=== PATIENT | male | born 2000 | race Caucasian/White ===

== ENCOUNTER 2024-08-13 11:52 | Emergency (ER) | payer BC, OTHER ==
[~2024-08-13] VITALS: Ht 175.3 cm; Wt 95.6 kg
[2024-08-13 13:21] LABS: Urine Bacteria None Seen /hpf (None Seen)
[2024-08-13 13:37] LABS: Urine Blood Negative /uL (Negative); Urine Clarity Clear (Clear); Urine Color Light-Yellow (Yellow); Urine Mucus FEW (None Seen); Urine Protein, UAD Negative (Negative); Urine Specific Gravity 1.021 (1.001-1.035); Urine Urobilinogen Normal (Negative); Urine WBC <1 /hpf (0 - 3); Urine pH 5.5 (5.0-9.0)
[2024-08-13] MEDS: TAMSULOSIN HYDROCHLORIDE 0.4 MG CAP PO ONE (13:50)
[2024-08-13] MEDS: METOCLOPRAMIDE HCL 5MG/ml INJ 2ml VIAL IV ONE (13:51)
[2024-08-13] MEDS: KETOROLAC TROMETH 30 MG/ML 1ML VIAL IV ONE (13:51)
--- NOTE | 2024-08-13 14:35 | ED.PDOC ---
History of Present Illness HPI Comments 23 y/o M, with a Hx of right testicular scrotum stone and marijuana use, presents with c/o right-sided flank and abdominal pain and nausea, today. Patient reports sudden and unprovoked onset of symptoms, this morning, while at work, with no prior Hx of in the past. He states on plan radiating from his flank to his abdomen. He admits to no recent injuries, sick contact, travel, spoiled food intake, stressors, strenuous activities, or substance use/exposure along with any additional relevant or pertinent Hx. Patient denies having any vomiting, diarrhea, urinary symptoms, fever, chills, or other associated symptoms or modifiers at this time. Chief Complaint: Flank Pain Time Seen by MD: 13:40 Primary Care Provider: DARIANA Yancey Notes: Nurses Notes, Medications, Allergies Allergies: Coded Allergies: NO KNOWN ALLERGIES (Unverified , 08/13/24) Information Source: Patient Mode of Arrival: Ambulatory Severity: Moderate Timing: Hours Duration: Since onset Prehospital treatment: None Past Medical History Past Medical History (Other): right testicular stone Surgical History: Denies all surgeries Surgical History (Other): carpal tunnel Sx for right hand Family History Family History: Unknown Social History Smoker: Non-Smoker Alcohol: Denies ETOH Use Drugs: Marijuana Lives In: Home Gastrointestinal: reports: abdominal pain (right-side ), nausea Genitourinary: reports: flank pain (right-side ) All Other Systems: Reviewed and Negative (negative unless otherwise stated above or in HPI) Physical Exam General Appearance: Moderate Distress, Normal HEENT: Normal ENT Inspection, PERRL/EOMI Neck: Full Range of Motion, Non-Tender, Normal, Normal Inspection Respiratory: Chest Non-Tender, Lungs Clear, No Accessory Muscle Use, No Respiratory Distress, Normal Breath Sounds Cardiovascular: No Edema, No JVD, No Murmur, No Gallop, Normal Peripheral Pulses, Regular Rate/Rhythm Breast Exam: Deferred Gastrointestinal: No Organomegaly, Non Tender, No Pulsatile Mass, Normal Bowel Sounds, Soft Genitalia: Deferred Pelvic: Deferred Rectal: Deferred Extremities: No calf tenderness, Normal capillary refill, Normal inspection, Normal range of motion, Non-tender, No pedal edema Musculoskeletal : Location: Right Extremity Location: Back Apperance: Other (Right flank pain exquisite tenderness radiation to the abdomen) 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 Was a procedure done?: No Differential Dx Considerations may include: nephrolithiasis, pyelonephritis, acute back spasms X-Ray, Labs, Meds, VS Vital Signs Date Time Temp Pulse Resp B/P (MAP) Pulse Ox O2 Delivery O2 Flow Rate FiO2 08/13/24 13:55 Room Air* 0 21 08/13/24 12:00 98.2 65 18 124/51 (75) 97 Lab Test 08/13/24 12:07 Range/Units Urine Color Light-yellow Yellow Urine Clarity Clear Clear Urine pH 5.5 5.0-9.0 Urine Specific [place] 1.021 1.001-1.035 Urine Protein Negative Negative Urine Ketones Negative Negative Urine Blood Negative Negative /uL Urine Nitrite Negative Negative Urine Bilirubin Negative Negative Urine Urobilinogen Normal Negative mg/dL Urine Leukocyte Esterase Negative Negative /uL Urine RBC <1 0 - 3 /hpf Urine WBC <1 0 - 3 /hpf Urine Squamous Epithelial Cells None seen <5 /hpf Urine Bacteria None seen None Seen /hpf Urine Mucus Few None Seen Urine Glucose Normal Normal mg/dL Current Medications Medications (Trade) Dose Ordered Sig/Ryan Route Start Time Stop Time Status Last Admin Ketorolac Tromethamine (Toradol Injection) 30 mg ONCE ONCE IV 08/13/24 14:00 08/13/24 14:01 DC 08/13/24 13:51 Metoclopramide HCl (Reglan Injection) 10 mg ONCE ONCE IV 08/13/24 14:00 08/13/24 14:01 DC 08/13/24 13:51 Tamsulosin HCl (Flomax) 0.8 mg ONCE ONCE PO 08/13/24 14:00 08/13/24 14:01 [place] 08/13/24 13:[address] [address] Ph: [phone] DIAGNOSTIC IMAGING Diagnostic Imaging Report : [id number] Signed PATIENT: ALEX SPAULDING ACCT: [id number] UNIT: [id number] : 2000 LOC: ER ROOM / BED: / AGE / SEX: 23 / M ADM STATUS: REG ER SERVICE [id number] ORDERING PHYSICIAN: FELICE VALLE MD PROCEDURE(s): ABPL - CT AB PEL WO CON-NO ORAL OR IV REASON: flank pain ORDER NUMBER(s): [id number], ACCESSION NUMBER(s): [id number] Procedure: CT CT AB PEL WO CON-NO ORAL OR IV 08/13/2024 01:49 PM Indication: flank pain Comparison Study: None available at time of dictation. Technique: Axial images were obtained and reformatted in coronal and sagittal planes. All CT scans at this medical facility are performed using dose modulation techniques as appropriate to a performed exam including the following: Automated exposure control was utilized; adjustment of the MA and/or KV according to patient size; and use of iterative reconstruction technique. CT Dose: CTDI volume is 15.5 mGy. Dose-length product is 797.7 mGy*cm FINDINGS: Lower Chest: Unremarkable. Hepatobiliary: Unremarkable. Spleen: Unremarkable. Pancreas: Unremarkable. Adrenal Glands: Unremarkable. tract: The kidneys are normal in size bilaterally without hydronephrosis or nephrolithiasis. The urinary bladder is unremarkable. GI tract: The stomach is grossly normal in appearance. No evidence of small bowel obstruction. The large bowel is unremarkable. Mild fecal retention noted in the ascending and transverse colon. The appendix is normal. Lymphatics: No mesenteric, retroperitoneal or periportal lymphadenopathy. Vasculature: The abdominal aorta is normal in in caliber. Pelvic Organs: Unremarkable Bones/soft tissues: No acute osseous abnormality. A small fat-containing umbilical hernia noted. Other: None. IMPRESSION: 1. No CT evidence for acute intra-abdominal or intrapelvic process. ATED BY: GERRI PADILLA MD DICTATED DATE/TIME: 08/13/24 143 SIGNED BY: GERRI PADILLA MD SIGNED DATE/TIME: 08/13/24 143 CC: X-Ray, Labs, Meds, VS Comment Course in the emergency department eventful patient came in with a severe flank pain and back pain Patient received Toradol Reglan and Flomax Urine is negative The CT abdomen and pelvis does not show any lithiasis Re-evaluation the patient has mostly severe right-sided back pain nonradiating Time of 1ST Reevaluation: 14:10 Reevaluation 1ST: Unchanged Patient Education/Counseling: Diagnosis, Treatment Family Education/Counseling: No Family Present Departure 1 Departure Time of Disposition: 15:20 Impression: Primary Impression: Muscle spasm of back Ruled Out: Ureteral calculus, right Disposition: HOME / SELF CARE / HOMELESS Condition: Fair Additional Instructions: Local heat hot showers and follow up with your PCP e-Prescriptions Acetaminophen (Acetaminophen Extra Stren) 500 Mg Tab 500 MG PO TID for 10 Days, #30 TAB Prov: FELICE VALLE MD 08/13/24 Cyclobenzaprine Hcl (Cyclobenzaprine Hcl) 10 Mg Tab 10 MG PO TID for 10 Days, #30 TAB Prov: FELICE VALLE MD 08/13/24 Diclofenac Potassium (Diclofenac Potassium) 50 Mg Tab 1 TAB PO TIDP for 10 Days, #30 TAB Prov: FELICE VALLE MD 08/13/24 Discharged With: Self Critical Care Note Critical Care Time?: No Stability Stability form required: No Heart Score Heart Score: Heart Score Response (Comments) Value History N/A 0 EKG N/A 0 Age <45 0 Risk Factors No known risk factors 0 Troponin N/A 0 Total 0 I personally scribed for FELICE VALLE MD ([email or web address]) on 08/13/24 at 14:35. Electronically submitted by Adonis Wright ([email or web address]). I personally scribed for FELICE VALLE MD ([email or web address]) on 08/13/24 at 15:15. Electronically submitted by Adonis Wright ([email or web address]). FELICE VALLE MD Aug 13, 2024 14:35
[2024-08-13] MEDS ORDERED: CYCL-839 PO (15:24)
[2024-08-13] MEDS ORDERED: ACET-6 PO (15:24)
[2024-08-13] MEDS ORDERED: DICL50TA2 PO (15:24)
[2024-08-13 15:33] VITALS: BP 121/58; PULSE 69; RESP 16; TEMP 98.4; O2SAT 98
== END 2024-08-13 15:35 | disposition home or self-care (01) ==
LOC: ER 11:52
DX: M62.830 Muscle spasm of back (principal); R10.9 Unspecified abdominal pain; Z98.890 Other specified postprocedural states
CPT/HCPCS: 74176; 81001; 96374; 96375; 99285; J1885; J2765